=== PATIENT | male | born 1990 | race Caucasian/White ===

== ENCOUNTER 2025-02-09 01:31 | Emergency (ER) | payer MEDICAID ==
[~2025-02-09] VITALS: Ht 167.6 cm; Wt 75.0 kg
[2025-02-09 01:41] VITALS: BP 130/80; PULSE 67; RESP 16; TEMP 97.9; O2SAT 100
[2025-02-09] MEDS ORDERED: AMOX500C2 PO (03:11)
[2025-02-09] MEDS ORDERED: IBUP-1493 PO (03:11)
[2025-02-09] MEDS ORDERED: HYDR-4062 PO (03:11)
[2025-02-09] MEDS: AMOXICILLIN TRIHYDRATE 250 MG CAPSULE PO ONE (03:28)
[2025-02-09] MEDS: HYDROCODONE/ACETAMINOPHEN 5-325 MG TABLET PO ONE (03:28)
[2025-02-09] MEDS: IBUPROFEN 800 MG TABLET PO ONE (03:28)
== END 2025-02-09 03:37 | disposition home or self-care (01) ==
LOC: EMS 01:39
DX: K02.9 Dental caries, unspecified (principal); J45.909 Unspecified asthma, uncomplicated; F12.90 Cannabis use, unspecified, uncomplicated; Z79.899 Other long term (current) drug therapy
CPT/HCPCS: 99284; Z7502; Z7610